=== PATIENT | male | born 2000 | race African-American/Black ===

== ENCOUNTER 2022-02-27 17:08 | Emergency (ER) | payer OTHER ==
[~2022-02-27] VITALS: Ht 180.3 cm; Wt 98.6 kg
[2022-02-27] MEDS ORDERED: diphenhydrAMINE 50MG CAP PO ONE (17:45)
[2022-02-27] MEDS ORDERED: FAMOTIDINE 20MG/2ML VIAL IVP ONE (21:50)
[2022-02-27] MEDS ORDERED: diphenhydrAMINE 50MG/ML VIAL IV ONE (21:50)
[2022-02-27] MEDS ORDERED: NS 1,000 ML IV ONE (22:00)
[2022-02-27] MEDS ORDERED: CETI10CH PO (22:30)
[2022-02-27] MEDS ORDERED: PRED20TA PO (22:30)
[2022-02-27] MEDS ORDERED: FAMO20TA PO (22:30)
[2022-02-27 22:54] LABS: RSV AMPLIFICATION NEGATIVE (NEGATIVE)
[2022-02-28] MEDS ORDERED: DIPH-435 PO (00:08)
[2022-02-28 01:13] VITALS: BP 116/69
== END 2022-02-28 01:15 | disposition home or self-care (01) ==
LOC: M ED 17:08
DX: T78.40XA Allergy, unspecified, initial encounter (principal); R21 Rash and other nonspecific skin eruption; F10.10 Alcohol abuse, uncomplicated; Z91.013 Allergy to seafood; Z79.52 Long term (current) use of systemic steroids; Z79.1 Long term (current) use of non-steroidal anti-inflammatories (NSAID); Z79.899 Other long term (current) drug therapy
CPT/HCPCS: 87631; 96374; 99284; J1100

== ENCOUNTER 2022-02-28 11:50 | Emergency (ER) | payer OTHER ==
[~2022-02-28] VITALS: Ht 180.3 cm; Wt 99.6 kg
[~2022-02-28 11:50] MED LIST: CETI10CH PO; DIPH-435 PO; FAMO20TA PO; PRED20TA PO
[2022-02-28 12:01] VITALS: BP 118/57
[2022-02-28] MEDS ORDERED: predniSONE 20 MG TAB PO ONE (15:00)
[2022-02-28] MEDS ORDERED: diphenhydrAMINE 25MG CAP PO ONE (15:00)
== END 2022-02-28 15:46 | disposition home or self-care (01) ==
LOC: M ED 11:50 → EDBD 11:50 → M ED 15:46
DX: R21 Rash and other nonspecific skin eruption (principal); T78.40XA Allergy, unspecified, initial encounter
CPT/HCPCS: 99283; J7512